=== PATIENT | male | born 1960 | race Caucasian/White ===

== ENCOUNTER 2017-02-24 11:10 | Outpatient (CLI) | payer MEDICAID | END 2017-02-24 11:11 | disposition home or self-care (01) | DX: R01.1 Cardiac murmur, unspecified (principal) ==

== ENCOUNTER 2017-03-04 10:51 | Outpatient (CLI) | payer MEDICAID | END 2017-03-04 10:52 | disposition home or self-care (01) | DX: R01.1 Cardiac murmur, unspecified (principal); I51.7 Cardiomegaly; I34.0 Nonrheumatic mitral (valve) insufficiency ==

== ENCOUNTER 2017-11-27 15:47 | Outpatient (CLI) | payer MEDICAID ==
[2017-11-27 16:08] LABS: BASOPHILS # (AUTO) 0.1 10^3/uL (0.0-0.1); BASOPHILS % (AUTO) 1.2 %; EOSINOPHILS # (AUTO) 0.3 10^3/uL (0.0-0.7); EOSINOPHILS % (AUTO) 4.6 %; HGB - HEMOGLOBIN 14.9 g/dL (14.0-18.0); LYMPHOCYTES # (AUTO) 1.7 10^3/uL (1.5-3.5); LYMPHOCYTES % (AUTO) 23.9 %; MEAN CORPUSCULAR HEMOGLOBIN 31.6 pg (27.0-31.0); MEAN CORPUSCULAR HGB CONC 35.7 g/dL (32.0-36.0); MEAN CORPUSCULAR VOLUME 88.5 fL (80.0-94.0); MEAN PLATELET VOLUME 7.2 fL (7.4-11.4); MONOCYTES # (AUTO) 0.3 10^3/uL (0.0-1.0); MONOCYTES % (AUTO) 4.9 %; NEUTROPHILS # (AUTO) 4.5 10^3/uL (1.5-6.6); NEUTROPHILS % (AUTO) 65.4 %; PLT - PLATELET COUNT 266 10^3/uL (130-450); RED BLOOD COUNT 4.71 10^6/uL (4.70-6.10); RED CELL DISTRIBUTION WIDTH 12.7 % (12.0-15.0); WHITE BLOOD COUNT 6.9 x10^3/uL (4.8-10.8)
[2017-11-27 17:52] LABS: INR 0.9 (0.8-1.2); PT - PROTHROMBIN TIME 10.5 secs (9.9-12.6)
[2017-11-28 16:19] LABS: ALBUMIN 4.3 g/dL (3.2-5.5); CALCIUM 8.8 mg/dL (8.5-10.3); CREATININE 0.8 mg/dL (0.6-1.2); PHOSPHORUS 3.8 mg/dL (2.5-4.6)
== END 2017-11-27 15:48 | disposition home or self-care (01) ==
LOC: LAB 15:47
PROVIDERS: ATTEND Internal Medicine Cardiovascular Disease
DX: I25.10 Atherosclerotic heart disease of native coronary artery without angina pectoris (principal); R07.89 Other chest pain
CPT/HCPCS: 36415; 80069; 81599; 85025; 85610

== ENCOUNTER 2018-09-13 11:28 | Outpatient (CLI) | payer MEDICAID ==
[2018-09-13 18:26] LABS: CHOL/HDL RATIO 5.4 (<5.0); CHOLESTEROL 263 mg/dL; HDL CHOLESTEROL 49 mg/dL; LDL CHOLESTEROL,CALCULATED 191 mg/dL; LDL/HDL RATIO 3.9 (<3.6); VLDL CHOLESTEROL 23 mg/dL
== END 2018-09-13 11:29 | disposition home or self-care (01) ==
LOC: LAB.F 11:28
DX: E78.5 Hyperlipidemia, unspecified (principal); Z72.4 Inappropriate diet and eating habits
CPT/HCPCS: 36415; 80061; 83721

== ENCOUNTER 2019-12-12 14:39 | Outpatient (CLI) | payer MEDICAID ==
[2019-12-12 17:14] LABS: BASOPHILS # (AUTO) 0.1 10^3/uL (0.0-0.1); BASOPHILS % (AUTO) 0.6 %; EOSINOPHILS # (AUTO) 0.2 10^3/uL (0.0-0.7); EOSINOPHILS % (AUTO) 2.3 %; HGB - HEMOGLOBIN 14.3 g/dL (14.0-18.0); LYMPHOCYTES # (AUTO) 1.8 10^3/uL (1.5-3.5); LYMPHOCYTES % (AUTO) 21.5 %; MEAN CORPUSCULAR HEMOGLOBIN 30.8 pg (27.0-31.0); MEAN CORPUSCULAR HGB CONC 33.8 g/dL (32.0-36.0); MEAN CORPUSCULAR VOLUME 91.2 fL (80.0-94.0); MEAN PLATELET VOLUME 9.7 fL (7.4-11.4); MONOCYTES # (AUTO) 0.5 10^3/uL (0.0-1.0); NEUTROPHILS # (AUTO) 5.9 10^3/uL (1.5-6.6); NEUTROPHILS % (AUTO) 69.1 %; PLT - PLATELET COUNT 316 10^3/uL (130-450); RED BLOOD COUNT 4.64 10^6/uL (4.70-6.10); WHITE BLOOD COUNT 8.5 x10^3/uL (4.8-10.8)
== END 2019-12-12 14:40 | disposition home or self-care (01) ==
LOC: LAB.S 14:39
PROVIDERS: ATTEND Internal Medicine
DX: I05.9 Rheumatic mitral valve disease, unspecified (principal); R00.0 Tachycardia, unspecified; Z98.890 Other specified postprocedural states
CPT/HCPCS: 36415; 84443; 85025

== ENCOUNTER 2020-04-16 12:41 | Outpatient (CLI) | payer MEDICAID | END 2020-04-16 12:42 | disposition home or self-care (01) | LOC: LAB.S 12:41 | PROVIDERS: ATTEND Internal Medicine | DX: I25.10 Atherosclerotic heart disease of native coronary artery without angina pectoris (principal); R06.02 Shortness of breath; R53.83 Other fatigue | CPT/HCPCS: 36415; 81599; 82550; 82552; 84484 ==

== ENCOUNTER 2020-07-25 15:16 | Outpatient (CLI) | payer MEDICAID | END 2020-07-25 15:17 | disposition home or self-care (01) | LOC: COV 15:16 | PROVIDERS: ATTEND Family Medicine | DX: R05 Cough (principal); R06.02 Shortness of breath; M79.10 Myalgia, unspecified site; R53.83 Other fatigue; R68.83 Chills (without fever); J34.89 Other specified disorders of nose and nasal sinuses; Z20.828 Contact with and (suspected) exposure to other viral communicable diseases ==

== ENCOUNTER 2021-02-13 18:51 | Emergency (ER) | payer MEDICAID ==
[2021-02-13 19:44] LABS: BASOPHILS # (AUTO) 0.1 10^3/uL (0.0-0.1); BASOPHILS % (AUTO) 0.8 %; EOSINOPHILS # (AUTO) 0.1 10^3/uL (0.0-0.7); EOSINOPHILS % (AUTO) 2.2 %; HCT - HEMATOCRIT 40.4 % (42.0-52.0); HGB - HEMOGLOBIN 14.1 g/dL (14.0-18.0); LYMPHOCYTES # (AUTO) 1.8 10^3/uL (1.5-3.5); LYMPHOCYTES % (AUTO) 28.7 %; MEAN CORPUSCULAR HEMOGLOBIN 32.1 pg (27.0-31.0); MEAN CORPUSCULAR HGB CONC 34.9 g/dL (32.0-36.0); MEAN PLATELET VOLUME 9.4 fL (7.4-11.4); MONOCYTES # (AUTO) 0.6 10^3/uL (0.0-1.0); MONOCYTES % (AUTO) 8.6 %; NEUTROPHILS # (AUTO) 3.8 10^3/uL (1.5-6.6); NEUTROPHILS % (AUTO) 59.4 %; PLT - PLATELET COUNT 277 10^3/uL (130-450); RED BLOOD COUNT 4.39 10^6/uL (4.70-6.10); RED CELL DISTRIBUTION WIDTH 12.1 % (12.0-15.0); WHITE BLOOD COUNT 6.4 x10^3/uL (4.8-10.8)
[2021-02-13 20:00] LABS: ALBUMIN 3.8 g/dL (3.2-5.5); ALBUMIN/GLOBULIN RATIO 1.5 (1.0-2.2); BILIRUBIN,TOTAL 0.8 mg/dL (0.2-1.0); CALCIUM 8.9 mg/dL (8.5-10.3); CREATININE 0.8 mg/dL (0.6-1.2); POTASSIUM 3.7 mmol/L (3.5-5.0); TOTAL PROTEIN 6.4 g/dL (6.7-8.2)
--- NOTE | 2021-02-13 21:04 | ED Physician Documentation ---
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 Patient denies shortness of breath, fever, leg swelling, back pain, abdominal pain or nausea. Review of Systems Ten Systems: 10 systems reviewed and negative Constitutional: denies: Fever Cardiac: reports: Chest pain / pressure Respiratory: denies: Dyspnea, Cough PD PAST MEDICAL HISTORY - Past Medical History Past Medical History: Yes Cardiovascular: Hypertension, Valve disorder - Past Surgical History Past Surgical History: Yes Cardiovascular: Other - Present Medications Home Medications: Ambulatory Orders Medication Instructions Recorded Confirmed Lisinopril [Zestril] 2.5 mg PO DAILY 02/13/21 02/13/21 Metoprolol Succinate [Toprol Xl] 25 mg PO DAILY 02/13/21 02/13/21 - Allergies Allergies/Adverse Reactions: Allergies Allergy/AdvReac Type Severity Reaction Status Date / Time No Known Drug Allergies Allergy Verified 02/13/21 19:06 - Social History Does the pt smoke?: No Smoking Status: Never smoker Does the pt drink ETOH?: Yes Does the pt have substance abuse?: No - Immunizations Immunizations are current?: Yes PD ED PE NORMAL - Vitals Vital signs reviewed: Yes - General General: Alert and oriented X 3, No acute distress, Well developed/nourished - HEENT HEENT: Atraumatic, PERRL, EOMI - Neck Neck: Supple, no meningeal sign - Cardiac Cardiac: RRR - Respiratory Respiratory: No respiratory distress, Clear bilaterally - Abdomen Abdomen: Non tender, Non distended - Derm Derm: Normal color - Extremities Extremities: No deformity - Neuro Neuro: Alert and oriented X 3 - Psych Psych: Normal mood, Normal affect Results - Vitals Vitals: Vital Signs - 24 hr 02/13/21 02/13/21 02/13/21 19:02 19:16 21:13 Temperature 36.4 C L Heart Rate 78 82 76 Respiratory 18 15 26 H Rate Blood Pressure 117/83 H 121/93 H 122/86 H O2 Saturation 100 100 98 Oxygen O2 Source Room air - Labs Labs: Laboratory Tests 02/13/21 02/13/21 02/13/21 19:29 19:29 19:29 WBC 6.4 RBC 4.39 L Hgb 14.1 Hct 40.4 L MCV 92.0 MCH 32.1 H MCHC 34.9 RDW 12.1 Plt Count 277 MPV 9.4 Neut # (Auto) 3.8 Lymph # (Auto) 1.8 [place] # (Auto) 0.6 Eos # (Auto) 0.1 Baso # (Auto) 0.1 Absolute Nucleated RBC 0.00 Nucleated RBC % 0.0 Sodium 137 Potassium 3.7 Chloride 103 Carbon Dioxide 26 Anion Gap 8.0 BUN 17 Creatinine 0.8 Estimated GFR (MDRD) 98 Glucose 100 Calcium 8.9 Total Bilirubin 0.8 AST 22 ALT 36 Alkaline Phosphatase 42 Troponin I High Sens 4.1 Total Protein 6.4 L Albumin 3.8 Globulin 2.6 Albumin/Globulin Ratio 1.5 Lipase 53 H PD MEDICAL DECISION MAKING - ED course ED course: 60yM presents with atypical chest pain since yesterday evening, ekg with benign early repol, otherwise normal. Heart score 3 (risk factors, age). Patient refusing CXR, second ekg. Discussed risks of refusal and he has capacity to refuse. he will f/.u with his research chef Dr. Banks at [facility]. strict return precautions given. Departure - Departure Disposition: 01 Home, Self Care Clinical Impression: Chest pain, Weakness Condition: Good Instructions: ED Chest Pain Atypical Unkn Cause Comments: You were seen in the emergency department for chest pain that does not appear to be heart related. Your initial bloodwork including troponin was negative. Your EKG did not show any concerning features. You should follow up with your research chef at [facility] this week. Return to the emergency department immediately if you have any new or worsening symptoms or other concerns. Discharge Date/Time: 02/13/21 21:43
[2021-02-13 21:14] VITALS: BP 122/86
== END 2021-02-13 21:43 | disposition home or self-care (01) ==
LOC: ED 18:51
DX: R07.89 Other chest pain (principal); R53.1 Weakness; I10 Essential (primary) hypertension
CPT/HCPCS: 36415; 80053; 83690; 84484; 85025; 93005; 99284